=== PATIENT | female | born 1955 | race Caucasian/White ===

== ENCOUNTER → 2018-01-25 | Outpatient (CLI) | payer BC ==
[2015-03-08 10:55] VITALS: BP 124/70
--- NOTE | 2018-01-25 13:57 | RAD ---
Thyroid ultrasound, 01/25/2018: HISTORY: Multinodular goiter The right lobe of the gland measures 7.4 x 5.0 x 3.7 cm while the left lobe of the gland measures 7.8 x 4.1 x 2.5 cm. The gland is markedly heterogeneous. The appearance suggests multiple confluent nodules. No discrete measurable dominant nodule is seen. Markedly heterogeneous radionuclide uptake was also evident on a prior radionuclide scan from 05/22/2013. IMPRESSION: Enlarged heterogeneous thyroid gland in a pattern suggesting numerous confluent nodules versus chronic thyroiditis. Electronically signed by: Man Rush MD (01/25/2018 1:54 PM) [facility]
== END | disposition home or self-care (01) ==
LOC: US 08:42
PROVIDERS: ATTEND Nurse Practitioner Adult Health
DX: E04.2 Nontoxic multinodular goiter (principal); E11.9 Type 2 diabetes mellitus without complications; I10 Essential (primary) hypertension; E66.8 Other obesity; I25.2 Old myocardial infarction; I25.10 Atherosclerotic heart disease of native coronary artery without angina pectoris; E78.01 Familial hypercholesterolemia; R19.4 Change in bowel habit; E55.9 Vitamin D deficiency, unspecified; Z68.41 Body mass index [BMI] 40.0-44.9, adult; Z82.49 Family history of ischemic heart disease and other diseases of the circulatory system; Z88.8 Allergy status to other drugs, medicaments and biological substances; Z79.899 Other long term (current) drug therapy
CPT/HCPCS: 76536

== ENCOUNTER → 2019-11-18 | Outpatient (CLI) | payer BC ==
[2015-03-08 10:55] VITALS: BP 124/70
--- NOTE | 2019-11-18 17:45 | RAD ---
DATE: 11/18/2019 9:45 AM EXAM: MAMMO HIRAL SCREENING BILATERAL HISTORY: Screening COMPARISON: None available. This will serve as a new baseline. Bilateral CC and MLO views of the breasts were performed. Bilateral breast tomosynthesis was performed in CC and MLO projections. This study was interpreted with the benefit of Computerized Aided Detection (CAD). FINDINGS: Breast Density: SCATTERED The breast parenchyma shows scattered fibroglandular densities. Breast parenchyma level B No suspicious masses, microcalcifications or architectural distortion is present to suggest malignancy in either breast. The visualized axillae are unremarkable. IMPRESSION: No mammographic evidence of malignancy. BI-RADS CATEGORY: 1 NEGATIVE RECOMMENDED FOLLOW-UP: 12M 12 MONTH FOLLOW-UP Annual screening mammography is recommended, unless clinically indicated sooner based on symptoms or change in physical exam. PQRS compliance statement: Patient information was entered into a reminder system with a target due date for the next mammogram. Mammography is a sensitive method for finding small breast cancers, but it does not detect them all and is not a substitute for careful clinical examination. A negative mammogram does not negate a clinically suspicious finding and should not result in delay in biopsying a clinically suspicious abnormality. "Our facility is accredited by the [employer] Mammography Program."
== END | disposition home or self-care (01) ==
LOC: MAMMO 09:37
PROVIDERS: ATTEND Family Medicine
DX: Z12.31 Encounter for screening mammogram for malignant neoplasm of breast (principal)
CPT/HCPCS: 77063; 77067